=== PATIENT | male | born 1935 | race Caucasian/White ===

== ENCOUNTER 2018-07-31 12:29 | Emergency (ER) | payer OTHER ==
[~2018-07-31] VITALS: Ht 200.7 cm; Wt 158.8 kg
--- NOTE | 2018-07-31 12:35 | NUR ---
Placed in room 05 . Placed on media monitor, blood pressure machine and pulse oximeter. To gown for exam. Side rails up. Report given to shannan madrigal.
--- NOTE | 2018-07-31 12:47 | NUR ---
patient coming from home with daughter at bedside. patient is AOx4 c/o of gastric upset with genearlized weakness x 4 days. patient has a medical history DM2, BPH, pacemaker and gout. no other complaint or injury at this time.
[2018-07-31 12:48] VITALS: BP_SYST 123
--- NOTE | 2018-07-31 13:00 | NUR ---
ER at bedside examining patient.
[2018-07-31] MEDS ORDERED: NACL 0.9% 1,000 ML IV ONE (13:11)
[2018-07-31] MEDS ORDERED: ONDANSETRON HCL 4 MG/2 ML VIAL IVP ONE (13:15)
[2018-07-31 14:00] LABS: ANION GAP 7 (5-15); CALCIUM 8.4 mg/dL (8.4-11.0); CHLORIDE 103 mmol/L (98-107); GLUCOSE 102 mg/dL (70-99); POTASSIUM 3.9 mmol/L (3.5-5.1); SODIUM SERUM 139 mmol/L (136-145); UREA NITROGEN, BLOOD 14 mg/dL (8-21)
--- NOTE | 2018-07-31 14:00 | NUR ---
sent to RD for xrays
[2018-07-31 14:06] LABS: ALANINE AMINOTRANSFERASE 9 U/L (12-78); ALBUMIN 3.4 g/dL (3.4-4.8); ASPARTATE AMINOTRANSFERASE 15 U/L (10-37); LIPASE 81 U/L (73-393); TOTAL BILIRUBIN 0.5 mg/dL (0.0-1.0)
[2018-07-31 14:29] LABS: PROTHROMBIN TIME 10.2 SECS (9.5-12.5)
[2018-07-31 14:47] LABS: BASOPHILS % (AUTO) 0.5 % (0.0-2.0); EOSINOPHILS # (AUTO) 0.3 K/uL (0.0-0.4); EOSINOPHILS % (AUTO) 4.2 % (0.0-4.0); HEMATOCRIT 40.7 % (36-54); HEMOGLOBIN 13.8 g/dL (14.0-18.0); LYMPHOCYTES # (AUTO) 1.1 K/uL (1.0-5.5); LYMPHOCYTES % (AUTO) 13.3 % (20.5-51.5); MEAN CORPUSCULAR HEMOGLOBIN 29 pg (27-31); MEAN CORPUSCULAR HGB CONC 34 % (32-36); MEAN CORPUSCULAR VOLUME 85 fL (79.0-98.0); MONOCYTES # (AUTO) 0.3 K/uL (0.0-1.0); MONOCYTES % (AUTO) 4.1 % (1.7-9.3); NEUTROPHILS # (AUTO) 6.5 K/uL (1.8-7.7); NEUTROPHILS % (AUTO) 77.9 % (40.0-70.0); PLATELET COUNT (AUTO) 315 K/uL (130-430); RED CELL DISTRIBUTION WIDTH 13.5 % (9.0-15.0); WHITE BLOOD COUNT (AUTO) 8.2 K/uL (4.8-10.8)
--- NOTE | 2018-07-31 15:00 | NUR ---
food tray given, patient tolerated well
[2018-07-31 16:00] VITALS: BP_SYST 145
== END 2018-07-31 16:00 | disposition home or self-care (01) ==
LOC: SED 12:29
DX: E86.0 Dehydration (principal); R03.0 Elevated blood-pressure reading, without diagnosis of hypertension; E11.9 Type 2 diabetes mellitus without complications; M10.9 Gout, unspecified; Z95.0 Presence of cardiac pacemaker
CPT/HCPCS: 36415; 74021; 80053; 82962; 83690; 85025; 85610; 93005; 96361; 96374; 99284; J2405; J7030